=== PATIENT | female | born 1940 | race Caucasian/White ===

== ENCOUNTER → 2016-09-10 | Outpatient (CLI) | payer MEDICARE, OTHER ==
[~2016-09-10] MED LIST: CAR125T; DOCU100T15 OR; ENAL2.5T; IBUP50CH2; IOHEXOL 350 MG/ML 100ML IJ ONE; LEVO25TA49 PO; SIMV10TA84; TRIA50TA2 PO; WARF2TAB55
[2016-09-10 08:45] VITALS: BP 120/62
[2016-09-10 09:25] VITALS: BP 126/52
== END | disposition home or self-care (01) ==
LOC: Rad HDHVI 08:01
PROVIDERS: ATTEND Internal Medicine Cardiovascular Disease
DX: I65.23 Occlusion and stenosis of bilateral carotid arteries (principal); I70.8 Atherosclerosis of other arteries; G45.8 Other transient cerebral ischemic attacks and related syndromes; I34.2 Nonrheumatic mitral (valve) stenosis; I35.0 Nonrheumatic aortic (valve) stenosis; I07.1 Rheumatic tricuspid insufficiency
CPT/HCPCS: 70496; 70498; 93306; G0463; Q9967; 96374

== ENCOUNTER → 2016-09-30 | Outpatient (CLI) | payer MEDICARE, OTHER ==
[~2016-09-30] VITALS: Ht 157.5 cm; Wt 75.7 kg
[~2016-09-30] MED LIST changes: +ADENOSINE 64 MG in GIVE UN-DILUTED 0 ML IV ONE; +ADENOSINE 90 MG/30 ML INJ IV ONE; -IOHEXOL 350 MG/ML 100ML IJ ONE
== END | disposition home or self-care (01) ==
LOC: Rad HDHVI 09:32
PROVIDERS: ATTEND Internal Medicine Cardiovascular Disease
DX: R19.7 Diarrhea, unspecified (principal); R11.0 Nausea; I48.2 Chronic atrial fibrillation; I10 Essential (primary) hypertension; E78.00 Pure hypercholesterolemia, unspecified; Z95.0 Presence of cardiac pacemaker; Z98.61 Coronary angioplasty status
CPT/HCPCS: 78452; 93005; 96374; 96375; A9500; J0153

== ENCOUNTER → 2017-01-13 | Outpatient (CLI) | payer MEDICARE, OTHER ==
[~2017-01-13] MED LIST changes: -ADENOSINE 64 MG in GIVE UN-DILUTED 0 ML IV ONE; -ADENOSINE 90 MG/30 ML INJ IV ONE
== END | disposition home or self-care (01) ==
LOC: Rad HDHVI 09:07
PROVIDERS: ATTEND Internal Medicine Cardiovascular Disease
DX: M81.0 Age-related osteoporosis without current pathological fracture (principal); M85.9 Disorder of bone density and structure, unspecified; I10 Essential (primary) hypertension; E78.5 Hyperlipidemia, unspecified
CPT/HCPCS: 77078

== ENCOUNTER → 2017-01-31 | Outpatient (CLI) | payer MEDICARE | END | disposition home or self-care (01) | LOC: Rad HDHVI 10:27 | PROVIDERS: ATTEND Internal Medicine Cardiovascular Disease | DX: M47.896 Other spondylosis, lumbar region (principal); M16.0 Bilateral primary osteoarthritis of hip; I70.0 Atherosclerosis of aorta | CPT/HCPCS: 72110 ==

== ENCOUNTER 2017-05-26 00:49 | Emergency (ER) | payer MEDICARE ==
[~2017-05-26] VITALS: Ht 157.5 cm; Wt 77.6 kg
[2017-05-26 01:00] VITALS: BP 160/68
[2017-05-26 01:50] LABS: Urine RBC None Seen /hpf (0 - 4)
[2017-05-26 01:55] LABS: Basophils # (auto) 0.1 uL; Eosinophils # (auto) 0.5 uL; Eosinophils % (auto) 5.1 % (0.0-7.0); Hematocrit 43.7 % (36.0-46.0); Hemoglobin 14.8 g/dL (12.2-16.2); Lymphocytes % (auto) 21.4 % (10.0-50.0); Mean Corpuscular Hemoglobin 31.4 pg (28.0-32.0); Mean Corpuscular Hgb Conc. 33.9 g/dL (32.0-36.0); Mean Corpuscular Volume 92.4 fL (80.0-100.0); Mean Platelet Volume 7.7 fL (6.9-10.8); Monocytes # (auto) 0.7 uL; Monocytes % (auto) 7.9 % (0.0-12.0); Neutrophils % (auto) 64.6 % (37.0-80.0); Nucleated Red Blood Cells % 0.1 %; Platelet Count (auto) 252 10^3/uL (140-450); Red Cell Distribution Width 14.3 % (11.8-14.3); White Blood Cell 9.2 10^3/uL (4.4-10.8)
[2017-05-26 02:09] LABS: Urine Bilirubin Negative (Negative); Urine Blood Negative /uL (Negative); Urine Color Yellow (Yellow); Urine Glucose Normal (Normal); Urine Ketone Negative (Negative); Urine Nitrite Negative (Negative); Urine Urobilinogen Normal (Negative)
[2017-05-26 02:10] LABS: INR 2.35 (0.9-1.15); Partial Thromboplastin Time 42.1 sec (22.64-33.71); Prothrombin Time 25.8 sec (9.37-12.3)
[2017-05-26 02:22] LABS: Temperature: 23.1 C (20.0-25.0)
[2017-05-26 02:38] LABS: Alkaline Phosphatase 87 U/L (45-117); Anion Gap 11 (5-15); Aspartate Aminotransferase 22 U/L (15-37); BUN/Creatinine Ratio 23.4; Bilirubin, Total 0.4 mg/dL (0.2-1.0); Blood Urea Nitrogen 15 mg/dL (7-18); Calcium 9.1 mg/dL (8.5-10.1); Carbon Dioxide 27 mmol/L (21-32); Chloride 102 mmol/L (98-107); GFR African American 117 mL/min; GFR Non-African American 96 mL/min; Glucose 119 mg/dL (74-106); Magnesium 2.3 mg/dL (1.6-2.6); Potassium 4.2 mmol/L (3.5-5.1); Sodium 140 mmol/L (136-145)
== END 2017-05-26 05:31 | disposition left against medical advice (07) ==
LOC: ER 00:52
DX: R00.2 Palpitations (principal); R53.1 Weakness; Z53.21 Procedure and treatment not carried out due to patient leaving prior to being seen by health care provider
CPT/HCPCS: 36415; 71010; 80053; 81001; 83735; 83880; 84484; 85025; 85610; 85730; 93005

== ENCOUNTER → 2017-05-26 | Outpatient (CLI) | payer MEDICARE ==
[2017-05-26 08:33] LABS: Basophils # (auto) 0.1 uL; Basophils % (auto) 0.8 % (0.0-2.0); Eosinophils # (auto) 0.5 uL; Eosinophils % (auto) 4.6 % (0.0-7.0); Hematocrit 42.9 % (36.0-46.0); Hemoglobin 14.6 g/dL (12.2-16.2); Lymphocytes # (auto) 1.9 uL; Lymphocytes % (auto) 18.9 % (10.0-50.0); Mean Corpuscular Hemoglobin 31.7 pg (28.0-32.0); Mean Corpuscular Hgb Conc. 34.1 g/dL (32.0-36.0); Mean Platelet Volume 8.1 fL (6.9-10.8); Monocytes # (auto) 0.7 uL; Monocytes % (auto) 6.8 % (0.0-12.0); Neutrophils # (auto) 6.8 uL; Neutrophils % (auto) 68.9 % (37.0-80.0); Platelet Count (auto) 255 10^3/uL (140-450); Red Cell Distribution Width 13.9 % (11.8-14.3)
[2017-05-26 08:35] LABS: Urine Bilirubin Negative (Negative); Urine Blood Negative /uL (Negative); Urine Color Yellow (Yellow); Urine Glucose Normal (Normal); Urine Ketone Negative (Negative); Urine Mucus FEW (None Seen); Urine Nitrite Negative (Negative); Urine RBC 2 /hpf (0 - 4); Urine Squamous Epithelial Cell FEW /hpf (<5); Urine Urobilinogen Normal (Negative); Urine pH 5.5 (5.0-8.0)
[2017-05-26 08:50] LABS: Albumin 4.1 g/dL (3.4-5.0); Alkaline Phosphatase 76 U/L (45-117); Anion Gap 7 (5-15); Aspartate Aminotransferase 22 U/L (15-37); BUN/Creatinine Ratio 23.2; Bilirubin, Direct 0.2 mg/dL (0-0.2); Bilirubin, Total 0.6 mg/dL (0.2-1.0); Blood Urea Nitrogen 13 mg/dL (7-18); Calcium 9.5 mg/dL (8.5-10.1); Carbon Dioxide 27 mmol/L (21-32); Chloride 104 mmol/L (98-107); Cholesterol 284 mg/dL (< 200); GFR African American 136 mL/min; GFR Non-African American 112 mL/min; Glucose 104 mg/dL (74-106); HDL Cholesterol 30 mg/dL (40-59); Potassium 3.9 mmol/L (3.5-5.1); Sodium 138 mmol/L (136-145); Total Protein 7.8 g/dL (6.4-8.2); Triglycerides 425 mg/dL (< 150)
== END | disposition home or self-care (01) ==
LOC: LAB 06:35
PROVIDERS: ATTEND Internal Medicine Cardiovascular Disease
DX: I10 Essential (primary) hypertension (principal); E11.9 Type 2 diabetes mellitus without complications; D64.9 Anemia, unspecified; E55.9 Vitamin D deficiency, unspecified; E78.00 Pure hypercholesterolemia, unspecified; E03.9 Hypothyroidism, unspecified; K74.1 Hepatic sclerosis
CPT/HCPCS: 36415; 80048; 80061; 80076; 81001; 82306; 83036; 84443; 85025

== ENCOUNTER → 2017-06-24 | Outpatient (CLI) | payer MEDICARE | END | disposition home or self-care (01) | LOC: Rad HDHVI 09:05 | PROVIDERS: ATTEND Internal Medicine Cardiovascular Disease | DX: I47.1 Supraventricular tachycardia (principal) | CPT/HCPCS: 93306 ==

== ENCOUNTER → 2017-11-28 | Outpatient (CLI) | payer MEDICARE ==
[2017-11-28 12:18] LABS: Basophils # (auto) 0.1 uL; Basophils % (auto) 0.8 % (0.0-2.0); Eosinophils # (auto) 0.4 uL; Hemoglobin 14.4 g/dL (12.2-16.2); Lymphocytes # (auto) 1.4 uL; Mean Corpuscular Hemoglobin 31.7 pg (28.0-32.0); Mean Corpuscular Hgb Conc. 33.5 g/dL (32.0-36.0); Mean Corpuscular Volume 94.6 fL (80.0-100.0); Monocytes # (auto) 0.5 uL; Monocytes % (auto) 6.2 % (0.0-12.0); Neutrophils # (auto) 5.4 uL; Nucleated Red Blood Cells % 0.2 %; Platelet Count (auto) 280 10^3/uL (140-450); Red Blood Cells 4.55 10^6/uL (4.0-5.20); Red Cell Distribution Width 14.9 % (11.8-14.3); White Blood Cell 7.7 10^3/uL (4.4-10.8)
[2017-11-28 12:32] LABS: Urine Blood Negative /uL (Negative); Urine Specific Gravity 1.017 (1.001-1.035)
[2017-11-28 12:58] LABS: Free T4 (Free Thyroxine) 1.38 ng/dL (0.89-1.76)
[2017-11-28 13:15] LABS: Albumin 3.9 g/dL (3.4-5.0); Bilirubin, Total 0.5 mg/dL (0.2-1.0); Calcium 9.2 mg/dL (8.5-10.1); Potassium 4.2 mmol/L (3.5-5.1); Total Protein 7.6 g/dL (6.4-8.2)
== END | disposition home or self-care (01) ==
LOC: LAB 08:50
PROVIDERS: ATTEND Internal Medicine Cardiovascular Disease
DX: E78.5 Hyperlipidemia, unspecified (principal); D64.9 Anemia, unspecified; I10 Essential (primary) hypertension; E11.9 Type 2 diabetes mellitus without complications; E03.9 Hypothyroidism, unspecified; E55.9 Vitamin D deficiency, unspecified; D51.9 Vitamin B12 deficiency anemia, unspecified; N39.0 Urinary tract infection, site not specified
CPT/HCPCS: 36415; 80053; 80061; 81003; 82306; 82607; 83036; 84439; 84443; 85025

== ENCOUNTER → 2018-06-29 | Outpatient (CLI) | payer MEDICARE ==
[~2018-06-29] MED LIST changes: +LIDOCAINE 2%HCL (LOCAL ANESTH.) INJ 20ML MDV ONE; +SOTA80TA PO; -WARF2TAB55; +WARF2TAB55 PO; +[UNRECOGNIZED DRUG - CODE] PO
[2018-06-29 09:19] VITALS: BP 138/72
[2018-06-29 10:08] VITALS: BP 133/72
[2018-06-29 12:49] LABS: Partial Thromboplastin Time 29.8 sec (23.78-33.04); Prothrombin Time 10.7 sec (9.27-12.13)
[2018-06-29 12:50] LABS: Basophils # (auto) 0.1 uL; Basophils % (auto) 0.6 % (0.0-2.0); Eosinophils # (auto) 0.3 uL; Eosinophils % (auto) 3.9 % (0.0-7.0); Lymphocytes # (auto) 1.4 uL; Mean Corpuscular Hemoglobin 31.8 pg (28.0-32.0); Mean Corpuscular Hgb Conc. 34.2 g/dL (32.0-36.0); Monocytes # (auto) 0.9 uL; Monocytes % (auto) 10.4 % (0.0-12.0); Neutrophils # (auto) 5.7 uL; Neutrophils % (auto) 68.1 % (37.0-80.0); Nucleated Red Blood Cells % 0.3 %; Platelet Count (auto) 251 10^3/uL (140-450); Red Blood Cells 4.73 10^6/uL (4.0-5.20); Red Cell Distribution Width 14.3 % (11.8-14.3); White Blood Cell 8.4 10^3/uL (4.4-10.8)
[2018-06-29 13:13] LABS: Potassium 3.9 mmol/L (3.5-5.1)
[2018-06-29 13:20] LABS: BUN/Creatinine Ratio 21.1; Calcium 9.1 mg/dL (8.5-10.1)
== END | disposition home or self-care (01) ==
LOC: Rad HDHVI 09:03
PROVIDERS: ATTEND Internal Medicine Cardiovascular Disease
DX: Z01.818 Encounter for other preprocedural examination (principal); I70.0 Atherosclerosis of aorta; D64.9 Anemia, unspecified; I48.0 Paroxysmal atrial fibrillation; R79.1 Abnormal coagulation profile; I10 Essential (primary) hypertension; R94.31 Abnormal electrocardiogram [ECG] [EKG]
CPT/HCPCS: 36415; 71046; 80048; 85025; 85610; 85730; 93005; G0463

== ENCOUNTER 2018-06-30 07:44 | Day surgery (SDC) | payer MEDICARE ==
[~2018-06-30] VITALS: Ht 157.5 cm; Wt 76.2 kg
[~2018-06-30 07:44] MED LIST changes: -CAR125T; -ENAL2.5T; -IBUP50CH2; -LIDOCAINE 2%HCL (LOCAL ANESTH.) INJ 20ML MDV ONE; -SIMV10TA84
[2018-06-30] MEDS ORDERED: VANCOMYCIN 1GM/250ML 250 ML IV ONE ×2 (08:44→08:45)
[2018-06-30] MEDS ORDERED: VANCOMYCIN HCL 1000 MG VL ONE (10:47)
[2018-06-30] MEDS ORDERED: MIDAZOLAM HCL 1MG/1ML-2 ML VIAL ONE (10:48)
[2018-06-30] MEDS ORDERED: fentaNYL CITRATE 100 MCG/2 ML VL ONE (10:48)
== END 2018-06-30 13:05 | disposition home or self-care (01) ==
LOC: CATH 07:44
PROVIDERS: ATTEND Internal Medicine Cardiovascular Disease
DX: Z45.018 Encounter for adjustment and management of other part of cardiac pacemaker (principal); I48.91 Unspecified atrial fibrillation; I49.5 Sick sinus syndrome; F41.9 Anxiety disorder, unspecified; F32.9 Major depressive disorder, single episode, unspecified; I10 Essential (primary) hypertension; E78.5 Hyperlipidemia, unspecified; E03.9 Hypothyroidism, unspecified; M81.0 Age-related osteoporosis without current pathological fracture; Z88.8 Allergy status to other drugs, medicaments and biological substances; Z88.2 Allergy status to sulfonamides; Z95.1 Presence of aortocoronary bypass graft; Z82.49 Family history of ischemic heart disease and other diseases of the circulatory system; Z87.891 Personal history of nicotine dependence; Z79.899 Other long term (current) drug therapy
CPT/HCPCS: 33228; 99152; 99153; A6257; C1785; J2250; J3010; J3370

== ENCOUNTER 2018-07-16 23:05 | Emergency (ER) | payer MEDICARE ==
[~2018-07-16] VITALS: Ht 157.5 cm; Wt 75.7 kg
[2018-07-16 23:36] LABS: Basophils # (auto) 0.1 uL; Basophils % (auto) 0.9 % (0.0-2.0); Eosinophils # (auto) 0.4 uL; Eosinophils % (auto) 5.5 % (0.0-7.0); Hematocrit 45.2 % (36.0-46.0); Lymphocytes # (auto) 2.2 uL; Lymphocytes % (auto) 27.9 % (10.0-50.0); Mean Corpuscular Hemoglobin 30.9 pg (28.0-32.0); Mean Corpuscular Hgb Conc. 33.2 g/dL (32.0-36.0); Mean Corpuscular Volume 93.1 fL (80.0-100.0); Monocytes # (auto) 0.8 uL; Monocytes % (auto) 10.5 % (0.0-12.0); Neutrophils # (auto) 4.3 uL; Neutrophils % (auto) 55.2 % (37.0-80.0); Nucleated Red Blood Cells % 0.1 %; Platelet Count (auto) 286 10^3/uL (140-450); Red Blood Cells 4.85 10^6/uL (4.0-5.20); Red Cell Distribution Width 14.5 % (11.8-14.3); White Blood Cell 7.7 10^3/uL (4.4-10.8)
[2018-07-16 23:53] LABS: Urine Bacteria FEW /hpf (None Seen); Urine Blood Negative /uL (Negative); Urine Specific Gravity 1.008 (1.001-1.035); Urine WBC 2 /hpf (0 - 5)
[2018-07-16 23:54] LABS: Alanine Aminotransferase 21 U/L (13-56); Albumin 3.9 g/dL (3.4-5.0); Anion Gap 6 (5-15); Aspartate Aminotransferase 23 U/L (15-37); BUN/Creatinine Ratio 18.1; Blood Urea Nitrogen 17 mg/dL (7-18); Carbon Dioxide 27 mmol/L (21-32); Chloride 103 mmol/L (98-107); GFR African American 75 mL/min; GFR Non-African American 62 mL/min; Glucose 106 mg/dL (74-106); Magnesium 2.2 mg/dL (1.6-2.6); Potassium 3.7 mmol/L (3.5-5.1); Sodium 136 mmol/L (136-145)
[2018-07-16 23:59] LABS: Alkaline Phosphatase 80 U/L (45-117); Bilirubin, Total 0.4 mg/dL (0.2-1.0); Total Protein 7.6 g/dL (6.4-8.2)
[2018-07-17 04:30] VITALS: BP 121/75
== END 2018-07-17 05:05 | disposition home or self-care (01) ==
LOC: ER 23:24
DX: T82.199A Other mechanical complication of unspecified cardiac device, initial encounter (principal); I48.91 Unspecified atrial fibrillation; I11.0 Hypertensive heart disease with heart failure; I50.9 Heart failure, unspecified; E07.9 Disorder of thyroid, unspecified; I25.810 Atherosclerosis of coronary artery bypass graft(s) without angina pectoris; F17.210 Nicotine dependence, cigarettes, uncomplicated; Z88.2 Allergy status to sulfonamides
CPT/HCPCS: 36415; 71045; 80053; 81001; 83735; 83880; 84443; 84484; 85025; 85379; 93005

== ENCOUNTER → 2018-07-17 | Outpatient (CLI) | payer MEDICARE ==
[~2018-07-17] VITALS: Ht 30.5 cm; Wt 0.5 kg
[~2018-07-17] MED LIST changes: +CYANOCOBALAMIN (B-12) 1000 MCG/1 ML VIAL IM ONE; +CYANOCOBALAMIN (B-12) 1000 MCG/1 ML VIAL ONE; +KETOROLAC TROMETH 60MG/2ML VIAL IM ONE; +POTASSIUM CHL 10 Meq TABLET PO ONE; +POTASSIUM CHL 20 Meq TABLET PO ONE
[2018-07-17 07:53] VITALS: BP 120/54
[2018-07-17 09:12] VITALS: BP 179/78
== END | disposition home or self-care (01) ==
LOC: CHF HDHVI 08:20
PROVIDERS: ATTEND Internal Medicine Cardiovascular Disease
DX: I48.0 Paroxysmal atrial fibrillation (principal); R53.83 Other fatigue; I11.0 Hypertensive heart disease with heart failure; I50.9 Heart failure, unspecified; I25.10 Atherosclerotic heart disease of native coronary artery without angina pectoris; F32.9 Major depressive disorder, single episode, unspecified; I70.0 Atherosclerosis of aorta; F41.9 Anxiety disorder, unspecified; E78.5 Hyperlipidemia, unspecified; E03.9 Hypothyroidism, unspecified; M81.0 Age-related osteoporosis without current pathological fracture; E11.9 Type 2 diabetes mellitus without complications; E78.00 Pure hypercholesterolemia, unspecified; Z79.01 Long term (current) use of anticoagulants; Z86.73 Personal history of transient ischemic attack (TIA), and cerebral infarction without residual deficits; Z79.899 Other long term (current) drug therapy; Z87.891 Personal history of nicotine dependence; Z95.1 Presence of aortocoronary bypass graft; Z45.018 Encounter for adjustment and management of other part of cardiac pacemaker
CPT/HCPCS: 96372; G0463; J1885; J3420

== ENCOUNTER → 2018-08-25 | Outpatient (CLI) | payer MEDICARE ==
[~2018-08-25] MED LIST changes: -CYANOCOBALAMIN (B-12) 1000 MCG/1 ML VIAL IM ONE; -CYANOCOBALAMIN (B-12) 1000 MCG/1 ML VIAL ONE; +KETOROLAC TROMETH 30 MG/ML 1ML VIAL IV ONE; +MVI in SODIUM CHLORIDE 0.9% 1,000 ML IVB ONE; +MVI in SODIUM CHLORIDE 0.9% 1,010 ML ONE; +ONDANSETRON HCL 4 MG/2 ML VIAL IV ONE; +ONDANSETRON HCL 4 MG/2 ML VIAL ONE; -POTASSIUM CHL 10 Meq TABLET PO ONE; -POTASSIUM CHL 20 Meq TABLET PO ONE
--- NOTE | 2018-08-25 09:00 | NUR ---
IV insertion IV access obtained, via clean sterile technique by inserting 22 gauge catheter at [RIGHT AC) after [1] attempt(s). IV secured properly. No trauma to site. Patient tolerated procedure well.
--- NOTE | 2018-08-25 09:20 | NUR ---
Clinic Provider Clinic Provider into see pt with new orders received and carried out. MEDICATE FOR PAIN RATED 8/10 TO ALL OVER BODY ACHES. START IVFLUIDS
--- NOTE | 2018-08-25 09:20 | NUR ---
CHF TORADOL 30MG IVP, 10ML NS FLUSH, MVI BAG STARTED AT 330ML/HR . PT TOLERATED WELL.
--- NOTE | 2018-08-25 09:40 | NUR ---
RATES PAIN 5/10 CURRENTLY. REPORTS GOOD RELIEF OF ACHES.
--- NOTE | 2018-08-25 09:56 | NUR ---
CHF TORADOL 30MG IM L GLUTE ADMINISTERED . PT TOLERATED WELL. PT C/O NAUSEA SINCE SHE ARRIVED, HAS HAD IT OFF AND ON FOR THE LAST 2 WEEKS AND NOW ITS BACK AGAIN.
--- NOTE | 2018-08-25 10:01 | NUR ---
CHF DR. SANGEETHA HOPE ZOFRAN 4MG IVP FOR NAUSEA.
--- NOTE | 2018-08-25 10:46 | NUR ---
CHF PT STATES NAUSEA RESOLVED. PT HAD HER PACEMAKER INTERROGATED ALSO TODAY.
--- NOTE | 2018-08-25 11:30 | NUR ---
CHF PT STATES "PAIN NOW A 3/10, NAUSEA GONE, STILL HAS COLD FLU SYMPTOMS BUT STATES FEELING BETTER THAN WHEN SHE GOT HERE"
[2018-08-25 12:14] LABS: Basophils # (auto) 0.1 uL; Hemoglobin 7.7 g/dL (12.2-16.2); Lymphocytes # (auto) 1.1 uL; Lymphocytes % (auto) 8.8 % (10.0-50.0); Monocytes # (auto) 0.7 uL; Neutrophils # (auto) 10.9 uL; Nucleated Red Blood Cells % 0.1 %
[2018-08-25 12:17] LABS: Basophils % (auto) 0.5 % (0.0-2.0); Eosinophils # (auto) 0.2 uL; Eosinophils % (auto) 1.6 % (0.0-7.0); Hematocrit 23.1 % (36.0-46.0); Mean Corpuscular Hemoglobin 31.7 pg (28.0-32.0); Mean Corpuscular Hgb Conc. 33.5 g/dL (32.0-36.0); Mean Corpuscular Volume 94.7 fL (80.0-100.0); Monocytes % (auto) 5.1 % (0.0-12.0); Platelet Count (auto) 402 10^3/uL (140-450); Red Blood Cells 2.44 10^6/uL (4.0-5.20); Red Cell Distribution Width 16.3 % (11.8-14.3)
[2018-08-25 12:34] VITALS: BP 126/54
--- NOTE | 2018-08-25 12:34 | NUR ---
CHF MVI BAG COMPLETE AT 1230. IV removal IV DC'd with sterile technique, catheter fully intact. Pressure dressing applied to site. Patient tolerated procedure well. Discharged with aftercare instructions per MD. INSTRUCTED PT TO GO HOME AND REST AND FOLLOW UP WITH DR. VIVAS SCHEDULED. NOTE:
[2018-08-25 12:46] LABS: BUN/Creatinine Ratio 16.5; Calcium 8.5 mg/dL (8.5-10.1)
[2018-08-27 14:13] LABS: Potassium 2.8 mmol/L (3.5-5.1)
== END | disposition home or self-care (01) ==
LOC: CHF HDHVI 08:48
PROVIDERS: ATTEND Internal Medicine Cardiovascular Disease
DX: D64.9 Anemia, unspecified (principal); I11.0 Hypertensive heart disease with heart failure; I50.9 Heart failure, unspecified; I48.2 Chronic atrial fibrillation; I25.10 Atherosclerotic heart disease of native coronary artery without angina pectoris; M16.0 Bilateral primary osteoarthritis of hip; E78.5 Hyperlipidemia, unspecified; E11.9 Type 2 diabetes mellitus without complications; F41.9 Anxiety disorder, unspecified; E78.00 Pure hypercholesterolemia, unspecified; E03.9 Hypothyroidism, unspecified; F32.9 Major depressive disorder, single episode, unspecified; M81.0 Age-related osteoporosis without current pathological fracture; Z98.61 Coronary angioplasty status; Z87.891 Personal history of nicotine dependence; Z95.1 Presence of aortocoronary bypass graft; Z79.891 Long term (current) use of opiate analgesic; Z79.01 Long term (current) use of anticoagulants; Z95.0 Presence of cardiac pacemaker; Z86.73 Personal history of transient ischemic attack (TIA), and cerebral infarction without residual deficits
CPT/HCPCS: 36415; 80048; 85025; 85610; 96365; 96366; 96372; 96375; G0463; J1885; J2405; J3411; J3475

== ENCOUNTER → 2018-08-26 | Outpatient (CLI) | payer MEDICARE ==
[~2018-08-26] MED LIST changes: -KETOROLAC TROMETH 30 MG/ML 1ML VIAL IV ONE; -KETOROLAC TROMETH 60MG/2ML VIAL IM ONE; -MVI in SODIUM CHLORIDE 0.9% 1,000 ML IVB ONE; -MVI in SODIUM CHLORIDE 0.9% 1,010 ML ONE; -ONDANSETRON HCL 4 MG/2 ML VIAL IV ONE; -ONDANSETRON HCL 4 MG/2 ML VIAL ONE; +POTASSIUM CHL 10 Meq TABLET PO ONE; +POTASSIUM CHL 20 Meq TABLET PO ONE
[2018-08-26 08:00] VITALS: BP 141/51
--- NOTE | 2018-08-26 08:00 | NUR ---
IN TO CLINIC FOR FOLLOWUP FOR HYPOKALEMIA AND FLU LIKE SYMPTOMS AND REPEAT LABS TODAY. LABS DRAWN AND SENT STAT. PT COMPLAINS OF CONSTIPATION TODAY. REPORTED LONGSTANDING DIARRHEA YESTERDAY. PT REPORTS SHE DID A SELF RECTAL CHECK AND THAT SHE HAS "SOFT STOOL THAT IS STUCK"
--- NOTE | 2018-08-26 08:40 | NUR ---
PT VISITING WITH OTHER PATIENTS. AFFECT CHEERFUL . WITHOUT COMPLAINT LONG SHE IS VISITING.
[2018-08-26 08:53] LABS: Basophils # (auto) 0.1 uL; Hemoglobin 7.4 g/dL (12.2-16.2)
[2018-08-26 08:54] LABS: Basophils % (auto) 0.4 % (0.0-2.0); Eosinophils # (auto) 0.3 uL; Hematocrit 22.3 % (36.0-46.0); Lymphocytes # (auto) 1.4 uL; Lymphocytes % (auto) 9.3 % (10.0-50.0); Mean Corpuscular Hemoglobin 31.9 pg (28.0-32.0); Mean Corpuscular Hgb Conc. 33.4 g/dL (32.0-36.0); Mean Corpuscular Volume 95.4 fL (80.0-100.0); Monocytes # (auto) 0.9 uL; Monocytes % (auto) 6.3 % (0.0-12.0); Nucleated Red Blood Cells % 0.1 %; Platelet Count (auto) 392 10^3/uL (140-450); Red Blood Cells 2.34 10^6/uL (4.0-5.20); Red Cell Distribution Width 16.3 % (11.8-14.3); White Blood Cell 14.6 10^3/uL (4.4-10.8)
[2018-08-26 08:56] LABS: Magnesium 2.2 mg/dL (1.6-2.6)
[2018-08-26 09:12] LABS: Potassium 2.8 mmol/L (3.5-5.1)
--- NOTE | 2018-08-26 09:30 | NUR ---
LABS RETURNED. NEW ORDERS RECIEVED. PT TO GO TO [facility] FOR TYPE AND SCREEN FOR BLOOD TRANSFUSION OF 2 UNITS PRBCS TO BE ADMINISTERED TOMORROW. TO FOLLOW UP AGAIN ON FRIDAY FOR ADDITIONAL LABS HERE FOR FOLLOWUP HGB POST TRANSFUSION AND FOR FOLLOWUP POTASSIUM LEVEL. REPEAT BACK INSTRUCTIONS OBTAINED FROM PATIENT. PT DISCHARGED TO CARE OF SON TO GO TO HOSPITAL FOR LABS NOW. Discharge Instructions See e-MAR for any mediations given with this visit. Patient education given on disease process. Patient verbalized understanding. Previous labs reviewed. Patient discharged in stable condition with after care instructions and follow up appointment FOR 08/28/18.
[2018-08-26 09:46] VITALS: BP 141/57
--- NOTE | 2018-08-26 11:28 | NUR ---
RETURNED TO CLINIC FOR ADDITIONAL POTASSIUM. MEDICATION ADMINISTRATION POTASSIUM 40 MEQ PO AT 0808 POTASSIUM 40 MEQ PO AT 1128 T/C TODAY FOR TRANSFUSION OF 2 UNITS PRBCS ON 08/27/18 AT [facility]
== END | disposition home or self-care (01) ==
LOC: CHF HDHVI 08:02
PROVIDERS: ATTEND Internal Medicine Cardiovascular Disease
DX: E87.6 Hypokalemia (principal); E83.40 Disorders of magnesium metabolism, unspecified; D64.9 Anemia, unspecified
CPT/HCPCS: 36415; 82962; 83735; 84132; 85025; 85610; G0463

== ENCOUNTER 2018-08-27 07:19 | Day surgery (SDC) | payer MEDICARE ==
--- NOTE | 2018-08-26 18:50 | NUR ---
Potassium level shown as 2.8 from [address] Castanon, who ordered to call pt and have her take 80 mEq of potassium. When I called pt, she said she received potassium 40meq this morning, and another 40meq at noon at the [facility]. Relayed this to Dr. Castanon; no new orders. No repeat potassium level located in pt chart. Will redraw when pt comes in the morning for scheduled transfusion.
[~2018-08-27 07:19] MED LIST changes: -POTASSIUM CHL 10 Meq TABLET PO ONE; -POTASSIUM CHL 20 Meq TABLET PO ONE
[2018-08-27 08:55] VITALS: BP 119/53
[2018-08-27 09:10] VITALS: BP 125/55
[2018-08-27 09:25] VITALS: BP 124/53
[2018-08-27 09:39] VITALS: BP 125/57
[2018-08-27 10:41] VITALS: BP 124/47
[2018-08-27 11:53] VITALS: BP 119/59
--- NOTE | 2018-08-27 12:00 | NUR ---
Pt tolerated blood transfusion well. No reaction noted. Verbal and written d/c instructions provided, pt verbalized understanding. PIV removed intact. Pt brought to private auto via w/c, escorted by son Blas. Steady on feet.
== END 2018-08-27 12:00 | disposition home or self-care (01) ==
LOC: CATH 07:19
PROVIDERS: ATTEND Internal Medicine Cardiovascular Disease
DX: D64.9 Anemia, unspecified (principal); F41.9 Anxiety disorder, unspecified; F32.9 Major depressive disorder, single episode, unspecified; F17.210 Nicotine dependence, cigarettes, uncomplicated; Z88.2 Allergy status to sulfonamides; Z88.8 Allergy status to other drugs, medicaments and biological substances; Z95.1 Presence of aortocoronary bypass graft; Z84.89 Family history of other specified conditions; Z82.49 Family history of ischemic heart disease and other diseases of the circulatory system
CPT/HCPCS: 36415; 36430; 84132; 86850; 86900; 86901; 86920; J7040; P9016

== ENCOUNTER → 2018-08-28 | Outpatient (CLI) | payer MEDICARE ==
[~2018-08-28] VITALS: Ht 30.5 cm; Wt 0.5 kg
[~2018-08-28] MED LIST changes: +CYANOCOBALAMIN (B-12) 1000 MCG/1 ML VIAL IM ONE; +CYANOCOBALAMIN (B-12) 1000 MCG/1 ML VIAL ONE; +POTASSIUM CHL 10 Meq TABLET PO ONE; +POTASSIUM CHL 20 Meq TABLET PO ONE
[2018-08-28 08:00] VITALS: BP 145/45
--- NOTE | 2018-08-28 08:00 | NUR ---
PT. TO CLINIC FOR EVAL. AND TX WITH STAT LABS ORDERD BY DR. VIVAS. PT. CONTINUES TO C/O GENERAL MALAISE, NAUSEA BUT NO VOMITING. PT STAES SHE GETS RELIEF FROM OTC MAALOX TYPE OF MEDICATION, AND STATES SHE BELIEVES IT COULD HAVE LEAD TO HER DARK STOOLS. PT. IS STATUS POST ONE UNIT PRBC YESTERDAY. AOX3, PWD. VSS.
--- NOTE | 2018-08-28 08:07 | NUR ---
STAT LABS DRAWN AND SENT.
[2018-08-28 08:31] LABS: Basophils # (auto) 0 uL; Basophils % (auto) 0.3 % (0.0-2.0); Eosinophils # (auto) 0.3 uL; Eosinophils % (auto) 1.8 % (0.0-7.0); Hematocrit 27.5 % (36.0-46.0); Hemoglobin 9.1 g/dL (12.2-16.2); Lymphocytes # (auto) 1.1 uL; Lymphocytes % (auto) 7.1 % (10.0-50.0); Mean Corpuscular Hemoglobin 31.3 pg (28.0-32.0); Mean Corpuscular Hgb Conc. 32.9 g/dL (32.0-36.0); Mean Corpuscular Volume 95.1 fL (80.0-100.0); Monocytes # (auto) 0.9 uL; Neutrophils # (auto) 13.3 uL; Neutrophils % (auto) 84.8 % (37.0-80.0); Nucleated Red Blood Cells % 0.1 %; Platelet Count (auto) 389 10^3/uL (140-450); Red Cell Distribution Width 15.4 % (11.8-14.3); White Blood Cell 15.7 10^3/uL (4.4-10.8)
--- NOTE | 2018-08-28 09:00 | NUR ---
PT. IS ANXIOUS TO LEAVE. REASSURANCE GIVEN TO PT. THAT SHE NEEDS TO WAIT ON LAB RESULTS, WITH RECENT ABNORMAL LAB S REVIEWED WITH PT.FOR RATIONALE.
--- NOTE | 2018-08-28 09:30 | NUR ---
LABS: LAB RESULTS TO DR. VIVAS WITH NEW ORDERS RECEIVED AND CARRIED , WITH MED REC REVIEWED WITH MD AND PT. INR DONE WITH RESULTS OF 2.7 TO MD. PT. MEDICATED WITH VIT. B12 1000MCG IM LFT DELT. PER MD ORDER.
--- NOTE | 2018-08-28 09:35 | NUR ---
MEDS: PT. MEDICATED WITH KDUR 40 MEQ PER MD ORDER.
--- NOTE | 2018-08-28 10:30 | NUR ---
MEDS: REPEAT K-DUR 40 MEQ PO GIVEN TO PT. PER MD ORDER.
[2018-08-28 10:35] VITALS: BP 140/49
--- NOTE | 2018-08-28 10:35 | NUR ---
Discharge Instructions See e-MAR for any mediations given with this visit. Patient education given on disease process. Patient verbalized understanding. Previous labs reviewed. Patient discharged in stable condition with after care instructions and follow up appointment. PT. GIVEN SPECIFIC INSTRUCTIONS TO HOLD BABY ASPIRIN, NAPROSYN, AND COUMADIN UNTIL SEEN BY DR. VIVAS NEXT FRIDAY AT 10:20. PT. HAS AN APPT. WITH [facility] NEXT AT 2:[address] MARTINEZ FOR UPPER GI CONSULT. RX FOR LEVAQUIN 500MG PO DAILY X7 DAYS CALLED TO [facility]. PER DR. VIVAS. PT. INSTRUCTED TO EAT YOGURT DAILY. PT. WITH FULL UNDERSTANDING OF MED REC CHANGES AND INSTRUCTIONS TO BRING ALL MEDS TO [facility] APPT.
== END | disposition home or self-care (01) ==
LOC: LAB 07:48
PROVIDERS: ATTEND Internal Medicine Cardiovascular Disease
DX: D51.9 Vitamin B12 deficiency anemia, unspecified (principal); E87.6 Hypokalemia; I11.0 Hypertensive heart disease with heart failure; I50.9 Heart failure, unspecified; I25.10 Atherosclerotic heart disease of native coronary artery without angina pectoris; I70.0 Atherosclerosis of aorta; I48.2 Chronic atrial fibrillation; E11.9 Type 2 diabetes mellitus without complications; E78.5 Hyperlipidemia, unspecified; E03.9 Hypothyroidism, unspecified; E78.00 Pure hypercholesterolemia, unspecified; M81.0 Age-related osteoporosis without current pathological fracture; M16.0 Bilateral primary osteoarthritis of hip; F41.9 Anxiety disorder, unspecified; F32.9 Major depressive disorder, single episode, unspecified; Z98.61 Coronary angioplasty status; Z95.0 Presence of cardiac pacemaker; Z95.1 Presence of aortocoronary bypass graft; Z79.01 Long term (current) use of anticoagulants; Z86.73 Personal history of transient ischemic attack (TIA), and cerebral infarction without residual deficits; Z79.899 Other long term (current) drug therapy; Z79.891 Long term (current) use of opiate analgesic; Z87.891 Personal history of nicotine dependence
CPT/HCPCS: 36415; 84132; 85025; 85610; 96372; G0463; J3420

== ENCOUNTER → 2018-09-11 | Outpatient (CLI) | payer MEDICARE ==
[~2018-09-11] MED LIST changes: -CYANOCOBALAMIN (B-12) 1000 MCG/1 ML VIAL IM ONE; -CYANOCOBALAMIN (B-12) 1000 MCG/1 ML VIAL ONE; -POTASSIUM CHL 10 Meq TABLET PO ONE; -POTASSIUM CHL 20 Meq TABLET PO ONE
[2018-09-11 12:05] LABS: Basophils # (auto) 0 uL; Basophils % (auto) 0.4 % (0.0-2.0); Eosinophils # (auto) 0.3 uL; Eosinophils % (auto) 3.9 % (0.0-7.0); Hematocrit 33.2 % (36.0-46.0); Hemoglobin 10.5 g/dL (12.2-16.2); Lymphocytes % (auto) 14.2 % (10.0-50.0); Mean Corpuscular Hemoglobin 28.1 pg (28.0-32.0); Mean Corpuscular Hgb Conc. 31.5 g/dL (32.0-36.0); Mean Corpuscular Volume 89.1 fL (80.0-100.0); Monocytes # (auto) 0.7 uL; Monocytes % (auto) 10.4 % (0.0-12.0); Neutrophils % (auto) 71.1 % (37.0-80.0); Nucleated Red Blood Cells % 0.1 %; Platelet Count (auto) 314 10^3/uL (140-450); Red Blood Cells 3.72 10^6/uL (4.0-5.20); Red Cell Distribution Width 17.7 % (11.8-14.3)
== END | disposition home or self-care (01) ==
LOC: CHF HDHVI 08:21
PROVIDERS: ATTEND Internal Medicine Cardiovascular Disease
DX: D64.9 Anemia, unspecified (principal); R79.1 Abnormal coagulation profile
CPT/HCPCS: 36415; 85025; 85610

== ENCOUNTER → 2019-01-29 | Outpatient (CLI) | payer MEDICARE ==
[2019-01-29 07:51] LABS: Urine Amorphous Crystal FEW /hpf (None Seen); Urine Bacteria FEW /hpf (None Seen); Urine Blood Negative /uL (Negative); Urine WBC 5 /hpf (0 - 5)
[2019-01-29 08:08] LABS: Basophils # (auto) 0 uL; Basophils % (auto) 0.5 % (0.0-2.0); Eosinophils # (auto) 0.2 uL; Eosinophils % (auto) 2.2 % (0.0-7.0); Hematocrit 45.3 % (36.0-46.0); Hemoglobin 15.3 g/dL (12.2-16.2); Lymphocytes # (auto) 1.4 uL; Mean Corpuscular Hemoglobin 30.3 pg (28.0-32.0); Mean Corpuscular Hgb Conc. 33.8 g/dL (32.0-36.0); Mean Corpuscular Volume 89.8 fL (80.0-100.0); Monocytes # (auto) 0.7 uL; Monocytes % (auto) 7.4 % (0.0-12.0); Neutrophils # (auto) 7.4 uL; Neutrophils % (auto) 75.9 % (37.0-80.0); Platelet Count (auto) 283 10^3/uL (140-450); Red Blood Cells 5.05 10^6/uL (4.0-5.20); Red Cell Distribution Width 18.6 % (11.8-14.3); White Blood Cell 9.8 10^3/uL (4.4-10.8)
[2019-01-29 08:17] LABS: Calcium 9.6 mg/dL (8.5-10.1); Potassium 3.6 mmol/L (3.5-5.1)
[2019-01-29 08:23] LABS: Albumin 3.7 g/dL (3.4-5.0); BUN/Creatinine Ratio 21.1; Bilirubin, Total 0.5 mg/dL (0.2-1.0); Total Protein 7.9 g/dL (6.4-8.2)
[2019-01-29 12:55] LABS: Free T4 (Free Thyroxine) 1.03 ng/dL (0.89-1.76)
== END | disposition home or self-care (01) ==
LOC: LAB 07:15
PROVIDERS: ATTEND Internal Medicine Cardiovascular Disease
DX: E78.5 Hyperlipidemia, unspecified (principal); K74.1 Hepatic sclerosis; E03.9 Hypothyroidism, unspecified; E55.9 Vitamin D deficiency, unspecified; E11.9 Type 2 diabetes mellitus without complications; N39.0 Urinary tract infection, site not specified; D51.9 Vitamin B12 deficiency anemia, unspecified; I11.0 Hypertensive heart disease with heart failure; I50.9 Heart failure, unspecified
CPT/HCPCS: 36415; 80053; 80061; 81001; 82306; 82607; 83036; 84439; 84443; 85025

== ENCOUNTER → 2019-02-09 | Outpatient (CLI) | payer MEDICARE | END | disposition home or self-care (01) | LOC: Rad HDHVI 08:03 | PROVIDERS: ATTEND Internal Medicine Cardiovascular Disease | DX: I70.202 Unspecified atherosclerosis of native arteries of extremities, left leg (principal) | CPT/HCPCS: 93926 ==

== ENCOUNTER → 2019-04-05 | Outpatient (CLI) | payer MEDICARE ==
[~2019-04-05] VITALS: Ht 157.5 cm; Wt 64.9 kg
[~2019-04-05] MED LIST changes: +ADENOSINE 54 MG in GIVE UN-DILUTED 0 ML IV ONE; +ADENOSINE 90 MG/30 ML INJ IV ONE; +FAMO-12 PO; +HYDR25TA4 PO; +METO-169 PO; +VERA120T3 PO; +WARF2TAB PO; -WARF2TAB55 PO
[2019-04-05 12:34] LABS: BUN/Creatinine Ratio 39.8; Calcium 9.4 mg/dL (8.5-10.1); Magnesium 2.3 mg/dL (1.6-2.6); Potassium 3.2 mmol/L (3.5-5.1)
== END | disposition home or self-care (01) ==
LOC: Rad HDHVI 08:00
PROVIDERS: ATTEND Internal Medicine Cardiovascular Disease
DX: E78.00 Pure hypercholesterolemia, unspecified (principal); E87.6 Hypokalemia; I11.0 Hypertensive heart disease with heart failure; I50.9 Heart failure, unspecified; Z87.891 Personal history of nicotine dependence
CPT/HCPCS: 36415; 78452; 80048; 83735; 93005; 96374; 96375; A9500; J0153

== ENCOUNTER → 2019-04-13 | Outpatient (CLI) | payer MEDICARE ==
[~2019-04-13] MED LIST changes: -ADENOSINE 54 MG in GIVE UN-DILUTED 0 ML IV ONE; -ADENOSINE 90 MG/30 ML INJ IV ONE
[2019-04-13 11:50] VITALS: BP 159/78
--- NOTE | 2019-04-13 12:25 | NUR ---
Pre-Op Discharge Summary: See e-MAR for any medications given for this visit. Pre-op orders received and carried out per of EKG, LABS and chest xrays. Patient given a copy of EKG with instructions to go to [facility] out patient for further follow up care. Addendum: 04/13/19 at 1514 by MARISOL WILKINS RN MO CHEST XRAY TO BE DONE AT [facility]
[2019-04-13 15:11] VITALS: BP 145/70
[2019-04-13 16:02] LABS: Basophils # (auto) 0 uL; Basophils % (auto) 0.4 % (0.0-2.0); Eosinophils # (auto) 0.2 uL; Eosinophils % (auto) 2.2 % (0.0-7.0); Hematocrit 44.1 % (36.0-46.0); Hemoglobin 14.8 g/dL (12.2-16.2); Lymphocytes # (auto) 1.8 uL; Lymphocytes % (auto) 18.8 % (10.0-50.0); Mean Corpuscular Hemoglobin 31.7 pg (28.0-32.0); Mean Corpuscular Hgb Conc. 33.5 g/dL (32.0-36.0); Mean Corpuscular Volume 94.6 fL (80.0-100.0); Monocytes # (auto) 0.8 uL; Monocytes % (auto) 7.7 % (0.0-12.0); Neutrophils # (auto) 6.9 uL; Neutrophils % (auto) 70.9 % (37.0-80.0); Platelet Count (auto) 234 10^3/uL (140-450); Red Blood Cells 4.66 10^6/uL (4.0-5.20); Red Cell Distribution Width 15.2 % (11.8-14.3); White Blood Cell 9.8 10^3/uL (4.4-10.8)
[2019-04-13 16:12] LABS: Potassium 3.6 mmol/L (3.5-5.1)
[2019-04-13 16:14] LABS: INR 2.03 (0.9-1.15); Partial Thromboplastin Time 41.7 sec (23.64-32.05)
[2019-04-13 16:30] LABS: BUN/Creatinine Ratio 37.2; Calcium 9.4 mg/dL (8.5-10.1)
== END | disposition home or self-care (01) ==
LOC: Rad HDHVI 11:02
PROVIDERS: ATTEND Internal Medicine Cardiovascular Disease
DX: Z01.812 Encounter for preprocedural laboratory examination (principal); E78.5 Hyperlipidemia, unspecified; I11.0 Hypertensive heart disease with heart failure; I25.10 Atherosclerotic heart disease of native coronary artery without angina pectoris; R94.31 Abnormal electrocardiogram [ECG] [EKG]
CPT/HCPCS: 36415; 80048; 80061; 85025; 85610; 85730; 93005; G0463

== ENCOUNTER 2019-04-15 09:02 | Day surgery (SDC) | payer MEDICARE ==
[~2019-04-15] VITALS: Ht 157.5 cm; Wt 63.5 kg
[~2019-04-15 09:02] MED LIST changes: -DOCU100T15 OR; -SOTA80TA PO; -[UNRECOGNIZED DRUG - CODE] PO
[2019-04-15 10:26] LABS: INR 1.11 (0.9-1.15); Partial Thromboplastin Time 30.1 sec (23.64-32.05)
[2019-04-15] MEDS ORDERED: SODIUM CHL 0.9% 0 ML ONE (12:11)
[2019-04-15] MEDS ORDERED: ANGIOMAX 250 MG VIAL IV ONE (12:11)
[2019-04-15] MEDS ORDERED: fentaNYL CITRATE 100 MCG/2 ML VL ONE (12:11)
[2019-04-15] MEDS ORDERED: MIDAZOLAM HCL 1MG/1ML-2 ML VIAL ONE (12:11)
[2019-04-15] MEDS ORDERED: IOHEXOL 350 MG/ML 100ML IJ ONE (12:21)
[2019-04-15] MEDS ORDERED: ACETAMINOPHEN 500 MG TAB PO PRN (13:15)
[2019-04-15] MEDS ORDERED: HYDROcodone-ACET 5/325MG TAB PO PRN (13:15)
[2019-04-15] MEDS ORDERED: ONDANSETRON HCL 4 MG/2 ML VIAL IV PRN (13:15)
== END 2019-04-15 15:10 | disposition home or self-care (01) ==
LOC: CATH 09:02
PROVIDERS: ATTEND Internal Medicine Cardiovascular Disease
DX: I25.810 Atherosclerosis of coronary artery bypass graft(s) without angina pectoris (principal); I73.9 Peripheral vascular disease, unspecified; I10 Essential (primary) hypertension; I49.5 Sick sinus syndrome; I48.0 Paroxysmal atrial fibrillation; M81.0 Age-related osteoporosis without current pathological fracture; J44.9 Chronic obstructive pulmonary disease, unspecified; E78.5 Hyperlipidemia, unspecified; F32.9 Major depressive disorder, single episode, unspecified; F41.9 Anxiety disorder, unspecified; F17.210 Nicotine dependence, cigarettes, uncomplicated; Z79.899 Other long term (current) drug therapy; Z79.01 Long term (current) use of anticoagulants; Z95.1 Presence of aortocoronary bypass graft; Z95.4 Presence of other heart-valve replacement; Z95.0 Presence of cardiac pacemaker; Z88.2 Allergy status to sulfonamides; Z88.8 Allergy status to other drugs, medicaments and biological substances; Z91.048 Other nonmedicinal substance allergy status
CPT/HCPCS: 36415; 85610; 85730; 93005; 93459; C1760; C1769; C1894; J2250; J3010; J7030; 99152; 99153

== ENCOUNTER → 2019-08-18 | Outpatient (CLI) | payer MEDICARE ==
[2019-08-18 12:18] LABS: Cholesterol 204 mg/dL (< 200); Creatine Kinase IFCC 87 U/L (26-192); HDL Cholesterol 40 mg/dL (40-59); LDL Cholesterol 121 mg/dL (< 100); Triglycerides 220 mg/dL (< 150)
== END | disposition home or self-care (01) ==
LOC: LAB 10:21
PROVIDERS: ATTEND Internal Medicine
DX: E78.5 Hyperlipidemia, unspecified (principal); R82.1 Myoglobinuria; Z79.899 Other long term (current) drug therapy
CPT/HCPCS: 36415; 80061; 82550; 83874; 84443

== ENCOUNTER → 2019-09-08 | Outpatient (CLI) | payer MEDICARE ==
[2019-09-08 16:00] LABS: Basophils # (auto) 0 uL; Basophils % (auto) 0.5 % (0.0-2.0); Eosinophils # (auto) 0.1 uL; Eosinophils % (auto) 1.8 % (0.0-7.0); Hematocrit 44.6 % (36.0-46.0); Hemoglobin 14.8 g/dL (12.2-16.2); Lymphocytes # (auto) 1.8 uL; Lymphocytes % (auto) 22.4 % (10.0-50.0); Mean Corpuscular Hemoglobin 31.6 pg (28.0-32.0); Mean Corpuscular Hgb Conc. 33.3 g/dL (32.0-36.0); Mean Corpuscular Volume 95.1 fL (80.0-100.0); Monocytes # (auto) 0.7 uL; Neutrophils # (auto) 5.2 uL; Neutrophils % (auto) 66.3 % (37.0-80.0); Nucleated Red Blood Cells % 0.1 %; Platelet Count (auto) 203 10^3/uL (140-450); Red Blood Cells 4.69 10^6/uL (4.0-5.20); Red Cell Distribution Width 14.5 % (11.8-14.3); White Blood Cell 7.8 10^3/uL (4.4-10.8)
== END | disposition home or self-care (01) ==
LOC: LAB 11:46
PROVIDERS: ATTEND Internal Medicine Cardiovascular Disease
DX: D64.9 Anemia, unspecified (principal); R79.1 Abnormal coagulation profile; Z79.899 Other long term (current) drug therapy
CPT/HCPCS: 36415; 83036; 85025; 85610

== ENCOUNTER → 2019-09-09 | Outpatient (CLI) | payer MEDICARE | END | disposition home or self-care (01) | LOC: Rad HDHVI 15:03 | PROVIDERS: ATTEND Internal Medicine Cardiovascular Disease | DX: I08.3 Combined rheumatic disorders of mitral, aortic and tricuspid valves (principal); I49.9 Cardiac arrhythmia, unspecified; I25.10 Atherosclerotic heart disease of native coronary artery without angina pectoris; R06.02 Shortness of breath | CPT/HCPCS: 93306 ==

== ENCOUNTER → 2019-09-14 | Outpatient (CLI) | payer MEDICARE | END | disposition home or self-care (01) | LOC: Rad HDHVI 08:05 | PROVIDERS: ATTEND Internal Medicine Cardiovascular Disease | DX: I65.23 Occlusion and stenosis of bilateral carotid arteries (principal); I49.5 Sick sinus syndrome; R07.89 Other chest pain; I10 Essential (primary) hypertension | CPT/HCPCS: 93880 ==

== ENCOUNTER → 2019-11-11 | Outpatient (CLI) | payer MEDICARE ==
[2019-11-11 16:17] LABS: Albumin 3.6 g/dL (3.4-5.0); Calcium 9.2 mg/dL (8.5-10.1); Potassium 4.5 mmol/L (3.5-5.1)
[2019-11-11 16:19] LABS: BUN/Creatinine Ratio 34.9
[2019-11-11 16:22] LABS: Bilirubin, Total 0.5 mg/dL (0.2-1.0); Total Protein 7.7 g/dL (6.4-8.2)
== END | disposition home or self-care (01) ==
LOC: LAB 11:23
PROVIDERS: ATTEND Internal Medicine
DX: I10 Essential (primary) hypertension (principal); I49.5 Sick sinus syndrome
CPT/HCPCS: 36415; 80053

== ENCOUNTER → 2019-12-23 | Outpatient (CLI) | payer MEDICARE ==
[2019-12-23 16:14] LABS: Cholesterol 221 mg/dL (< 200); HDL Cholesterol 41 mg/dL (40-59); LDL Cholesterol 136 mg/dL (< 100); Triglycerides 290 mg/dL (< 150)
== END | disposition home or self-care (01) ==
LOC: LAB 11:46
PROVIDERS: ATTEND Internal Medicine
DX: E78.5 Hyperlipidemia, unspecified (principal)
CPT/HCPCS: 36415; 80061

== ENCOUNTER → 2020-02-15 | Outpatient (CLI) | payer MEDICARE ==
[2020-02-15 16:23] LABS: Magnesium 2.4 mg/dL (1.6-2.6); Potassium 4.3 mmol/L (3.5-5.1)
== END | disposition home or self-care (01) ==
LOC: LAB 11:33
PROVIDERS: ATTEND Internal Medicine Cardiovascular Disease
DX: E87.6 Hypokalemia (principal); E83.40 Disorders of magnesium metabolism, unspecified; Z79.899 Other long term (current) drug therapy
CPT/HCPCS: 36415; 83735; 84132

== ENCOUNTER 2020-04-18 16:29 | Inpatient (IN) | payer MEDICARE ==
[~2020-04-18] VITALS: Ht 157.5 cm; Wt 65.9 kg
[2020-04-18 17:42] LABS: Basophils # (auto) 0 10 ^3/uL (0-0.2); Basophils % (auto) 0.4 % (0.0-2.0); Eosinophils # (auto) 0.1 10 ^3/uL (0-0.8); Eosinophils % (auto) 0.8 % (0.0-7.0); Hematocrit 38.1 % (36.0-46.0); Hemoglobin 13.5 g/dL (12.2-16.2); Lymphocytes # (auto) 1.4 10 ^3/uL (0.4-5.4); Lymphocytes % (auto) 14.9 % (10.0-50.0); Mean Corpuscular Hgb Conc. 35.3 g/dL (32.0-36.0); Mean Corpuscular Volume 90.5 fL (80.0-100.0); Monocytes # (auto) 0.7 10 ^3/uL (0-1.3); Neutrophils % (auto) 75.9 % (37.0-80.0); Nucleated Red Blood Cells % 0.1 %; Platelet Count (auto) 85 10^3/uL (140-450); Red Blood Cells 4.21 10^6/uL (4.0-5.20); Red Cell Distribution Width 13.2 % (11.8-14.3); White Blood Cell 9.3 10^3/uL (4.4-10.8)
[2020-04-18] MEDS ORDERED: METOPROLOL TARTRATE 50 MG TAB PO ONE (17:45)
[2020-04-18 17:47] LABS: Albumin 3.4 g/dL (3.4-5.0); Anion Gap 5 (5-15); Blood Urea Nitrogen 30 mg/dL (7-18); Calcium 11.1 mg/dL (8.5-10.1); Carbon Dioxide 30 mmol/L (21-32); Chloride 99 mmol/L (98-107); Glucose 99 mg/dL (74-106); Potassium 3.4 mmol/L (3.5-5.1); Sodium 134 mmol/L (136-145)
[2020-04-18 17:54] LABS: Alanine Aminotransferase 42 U/L (13-56); Alkaline Phosphatase 131 U/L (45-117); Aspartate Aminotransferase 146 U/L (15-37); BUN/Creatinine Ratio 28.3; Bilirubin, Total 0.5 mg/dL (0.2-1.0); GFR African American 65 mL/min; GFR Non-African American 53 mL/min; Total Protein 7.5 g/dL (6.4-8.2)
[2020-04-18] MEDS ORDERED: MORPHINE SULF INJ 2 MG/ML SYRINGE 1ML IV PRN (20:15)
[2020-04-18] MEDS ORDERED: NITROGLYCERIN 0.4 MG SL TAB SL PRN (20:15)
[2020-04-18] MEDS ORDERED: POTASSIUM EFFERVESENT TAB 25 MEQ PO ONE (20:30)
[2020-04-18 20:59] VITALS: BP 156/71
[2020-04-18] MEDS: SODIUM CHLORIDE 0.9% 1,000 ML IV SCH (20:59)
[2020-04-18] MEDS: ZINC SULFATE 220mg CAP or TAB PO SCH (20:59)
[2020-04-18] MEDS: ASCORBIC ACID 1,000 MG TAB PO SCH (21:00)
[2020-04-18] MEDS: CHOLECALCIFEROL (VITD3) 2,000 UNIT CAP PO SCH (21:05)
[2020-04-18] MEDS: ACETAMINOPHEN 500 MG TAB PO PRN (21:08)
[2020-04-18 21:18] LABS: INR 4.06 (0.9-1.15)
--- NOTE | 2020-04-18 21:40 | NUR ---
Respiratory note: RESP MED HELD AT THIS TIME WAITING FOR COVID RESULTS. NO RESP DISTRESS NOTED. PT PULSE OX 94% ON RA.
--- NOTE | 2020-04-18 21:45 | NUR ---
TEMPERATURE PT TEMPERATURE IS 100.3 MEDICATION NOT DUE APPLIED COOLING MEASURE
[2020-04-18] MEDS ORDERED: ALBUTEROL SULF HFA 90MCG INH 200DOSE IN SCH (22:00)
[2020-04-18] MEDS ORDERED: BUDESONIDE (INHALATION) 180 MCG IH IN SCH (22:00)
[2020-04-18 22:19] LABS: CRP High Sensitivity 8.24 mg/dL (< 0.3)
[2020-04-18 22:34] VITALS: BP 140/82
[2020-04-18] MEDS: VERAPAMIL HCL 120 mg ER tab PO SCH (22:59)
[2020-04-18] MEDS: DOXYCYCLINE 100 MG TAB/CAP PO SCH (22:59)
[2020-04-18] MEDS: ONDANSETRON HCL 4 MG/2 ML VIAL IV PRN (23:00)
[2020-04-18] MEDS ORDERED: ACET1CAP14 PO (23:27)
[2020-04-18] MEDS ORDERED: LOSA25TA38 PO (23:27)
[2020-04-19] MEDS ORDERED: PNEUMOCOCCAL VACC POLYS 25 MCG/0.5 ML VIAL IM ONE (00:30)
--- NOTE | 2020-04-19 01:06 | NUR ---
LATEST TEMPERATURE PT TEMPERATURE IS 97.8 WILL CONTINUE TO MONITOR
[2020-04-19 03:08] LABS: Urine Bacteria FEW /hpf (None Seen); Urine Blood Negative /uL (Negative); Urine Mucus FEW (None Seen); Urine Specific Gravity 1.008 (1.001-1.035); Urine WBC 2 /hpf (0 - 5)
[2020-04-19 05:00] VITALS: BP 130/83
[2020-04-19] MEDS: ACETAMINOPHEN 500 MG TAB PO PRN (05:25)
[2020-04-19] MEDS: VERAPAMIL HCL 120 mg ER tab PO SCH ×3 (05:26→22:46)
[2020-04-19] MEDS: LEVOTHYROXINE SODIUM 25 MCG TAB PO SCH (05:35)
--- NOTE | 2020-04-19 06:51 | NUR ---
CLOSING SHIFT NOTE WILL ENDORSE CARE TO DAY SHIFT RN, PT A0X4, NO S/S OF DISTRESS OR SOB
[2020-04-19 08:16] LABS: Hematocrit 38.8 % (36.0-46.0); Hemoglobin 13.6 g/dL (12.2-16.2); Mean Corpuscular Hemoglobin 31.7 pg (28.0-32.0); Mean Corpuscular Volume 90.5 fL (80.0-100.0); Platelet Count (auto) 84 10^3/uL (140-450); Red Blood Cells 4.29 10^6/uL (4.0-5.20); Red Cell Distribution Width 13.3 % (11.8-14.3); White Blood Cell 8.9 10^3/uL (4.4-10.8)
[2020-04-19 08:33] LABS: Albumin 3.4 g/dL (3.4-5.0); Magnesium 2.2 mg/dL (1.6-2.6); Potassium 3.7 mmol/L (3.5-5.1)
[2020-04-19 08:35] LABS: INR 2.57 (0.9-1.15); Partial Thromboplastin Time 42.7 sec (23.0-31.2)
[2020-04-19 08:37] LABS: BUN/Creatinine Ratio 28.9; Bilirubin, Total 0.7 mg/dL (0.2-1.0); Total Protein 7.4 g/dL (6.4-8.2)
[2020-04-19 08:53] LABS: Basophils % (manual) 0 (0.0-2.0); Blast Cells 0; Metamyelocytes % 0; Myelocytes % 0; Promyelocytes % 0; Reactive Lymphocytes 0
[2020-04-19 09:00] VITALS: BP 125/75
[2020-04-19] MEDS ORDERED: WARFARIN SODIUM 2 MG TAB PO SCH ×2 (10:00)
[2020-04-19] MEDS: ASCORBIC ACID 1,000 MG TAB PO SCH (10:00)
[2020-04-19] MEDS: CHOLECALCIFEROL (VITD3) 2,000 UNIT CAP PO SCH (10:00)
--- NOTE | 2020-04-19 10:15 | NUR ---
PATIENT REFUSE ALL MEDICATION UNTIL DR VIVAS SPEAKS IN PERSON. PATIENT STATED " DR VIVAS AND JAVON FINALLY GOT MY MEDS RIGHT NOW THEY WILL BE MESSED UP IM WAITING TO SEE DR VIVAS". THIS RN EXPLAINED ALL MEDICATIONS USE AND THIER SIDEEFFECTS AND THAT MEDICATIONS ARE SCHEDULED DIFFERENTLY IN THE HOSPITAL THAN AT HOME. EDUCATION PROVIDED AND RISKS INVOLVED WITH NONCOMPLIANCE OF DR ORDERS, PATIENT VERBALIZED UNDERSTANDING AND STILL REFUSED. WILL CONTINUE TO MONITOR.
[2020-04-19 10:16] LABS: Band Neutrophils % (manual) 7; Eosinophils % (manual) 1 (0-7); Lymphocytes % (manual) 19 (10.0-50.0); Monocytes % (manual) 4 (0-12)
[2020-04-19] MEDS: ZINC SULFATE 220mg CAP or TAB PO SCH (11:21)
[2020-04-19] MEDS: DOXYCYCLINE 100 MG TAB/CAP PO SCH ×2 (11:28→22:47)
[2020-04-19 13:00] VITALS: BP 136/76
[2020-04-19] MEDS ORDERED: IOHEXOL 350 MG/ML 100ML IJ ONE (14:10)
[2020-04-19] MEDS: METOPROLOL SUCCINATE XL 50 MG TAB PO SCH (16:34)
[2020-04-19 17:00] VITALS: BP 156/76
[2020-04-19] MEDS: ONDANSETRON HCL 4 MG/2 ML VIAL IV PRN (18:53)
--- NOTE | 2020-04-19 18:54 | NUR ---
ENDORSED CARE TO NIGHT RN, CONSENTS SIGNED OF BIOPSY NIGHT RN TO FINISH CHECKLIST.
[2020-04-19 20:00] VITALS: BP 136/76
[2020-04-19] MEDS: SODIUM CHLORIDE 0.9% 1,000 ML IV SCH (20:15)
[2020-04-19 22:00] VITALS: BP 157/69
--- NOTE | 2020-04-20 02:17 | NUR ---
PT GIVEN CHLORAHEXADRENE BATH;TOLERATED WELL.
[2020-04-20 05:00] VITALS: BP 149/74
[2020-04-20] MEDS: VERAPAMIL HCL 120 mg ER tab PO SCH ×3 (06:00→21:17)
[2020-04-20] MEDS: SODIUM CHLORIDE 0.9% 1,000 ML IV SCH ×4 (06:08→06:42)
[2020-04-20] MEDS: LEVOTHYROXINE SODIUM 25 MCG TAB PO SCH (06:09)
--- NOTE | 2020-04-20 06:09 | NUR ---
PT RESTED WELL THROUGH OUT THE NIGHT;NO C/O PAIN WILL CONTINUE TO MONITOR.
--- NOTE | 2020-04-20 07:45 | NUR ---
Opening Shift Note Assumed care of patient, awake and alert. No S/S of distress/SOB or pain. Instructed on POC and to call for assist PRN, will continue to monitor for changes Q1hr and PRN. Bed locked in lowest position with two side rails up and call light in reach.
[2020-04-20 08:00] VITALS: BP 146/71
--- NOTE | 2020-04-20 08:00 | NUR ---
Opening Shift Note Assumed care of patient, awake and alert. No S/S of distress/SOB or pain. Insructed on POC and to callfor assist PRN, will continue to monitor for changes Q1hr and PRN.
--- NOTE | 2020-04-20 08:22 | NUR ---
PT REQUEST PAIN MED Paged Dr. Castanon at [phone] for pain medication order for pt.
--- NOTE | 2020-04-20 08:32 | NUR ---
Order Received New order received from Dr. Castanon for Dilaudid 1mg iv q6 prn, for pt pain rating 10/10 via telephone order, verbal read back completed.
[2020-04-20 08:57] VITALS: BP 104/78
[2020-04-20] MEDS: HYDROmorphone HCL 2 MG/ML VL IV PRN (09:17)
--- NOTE | 2020-04-20 09:30 | NUR ---
At Bedside. Dr. He at bedside explaining to pt process of placement of catheter for dialysis, new orders to keep pt NPO for possible catheter placement for today. Addendum: 04/20/20 at 1213 by ARYAN DALE RN RN WRONG PT.
[2020-04-20] MEDS: DOXYCYCLINE 100 MG TAB/CAP PO SCH (10:31)
[2020-04-20] MEDS: METOPROLOL SUCCINATE XL 50 MG TAB PO SCH (10:31)
--- NOTE | 2020-04-20 10:40 | NUR ---
at bedside Dr. Marin at bedside explaining to pt post discharge follow up for at pulmonology clinic
[2020-04-20 12:59] VITALS: BP 116/83
--- NOTE | 2020-04-20 16:30 | NUR ---
Assumed care of patient. Patient awake, alert orientated. Patient instructed on POC. Fall precautions in place per safety protocol. Will cont to monitor patient.
[2020-04-20 16:43] VITALS: BP 145/80
--- NOTE | 2020-04-20 18:55 | NUR ---
Endorsed care to night RN Pako. RN Aware patient is to be NPO after midnight for Biopsy tomorrow.
--- NOTE | 2020-04-20 19:00 | NUR ---
Opening Shift Note Assumed care of patient, awake and alert. No S/S of distress/SOB or pain. Instructed on POC and to call for assist PRN, will continue to monitor for changes Q1hr and PRN.Advised no food or drink after midnight for biopsy of the right lung mass tomorrow.
[2020-04-20 21:48] VITALS: BP 139/70
[2020-04-21 05:00] VITALS: BP 147/79
[2020-04-21] MEDS: VERAPAMIL HCL 120 mg ER tab PO SCH ×3 (05:53→21:29)
[2020-04-21] MEDS: LEVOTHYROXINE SODIUM 25 MCG TAB PO SCH (05:53)
--- NOTE | 2020-04-21 06:14 | NUR ---
Called/paged [facility] [place] called re:med. for heart burn . Waiting for call back. Continue care.
--- NOTE | 2020-04-21 07:15 | NUR ---
Report given to ROSARIO Martinez, and to follow-up to the doctor heart burn med.
[2020-04-21 08:00] VITALS: BP 158/79
[2020-04-21] MEDS ORDERED: MIDAZOLAM HCL 1MG/1ML-2 ML VIAL IV ONE (08:00)
[2020-04-21] MEDS ORDERED: fentaNYL CITRATE 100 MCG/2 ML VL IV ONE (08:00)
[2020-04-21 08:01] LABS: INR 1.46 (0.9-1.15)
[2020-04-21 09:00] VITALS: BP 158/79
--- NOTE | 2020-04-21 09:05 | NUR ---
DR SANGEETHA KRAMER, PATIENT REQUESTING PEPCID. WILL AWAIT CALL BACK.
[2020-04-21] MEDS ORDERED: LIDOCAINE 2%HCL (LOCAL ANESTH.) INJ 20ML MDV ONE ×2 (09:36→17:04)
--- NOTE | 2020-04-21 09:45 | NUR ---
RECEIVED CALL FROM DR VIVAS PATIENT TO HAVE PEPCID 40 MG BID.
[2020-04-21] MEDS: METOPROLOL SUCCINATE XL 50 MG TAB PO SCH (10:00)
[2020-04-21] MEDS: HYDROmorphone HCL 2 MG/ML VL IV PRN ×2 (11:00→18:03)
[2020-04-21] MEDS: FAMOTIDINE 20 MG TAB PO SCH ×2 (11:03→21:28)
[2020-04-21 13:00] VITALS: BP 113/86
[2020-04-21] MEDS ORDERED: IOHEXOL 300 MG/ML 100ML BOTTLE IJ ONE (16:25)
[2020-04-21 17:00] VITALS: BP 149/82
--- NOTE | 2020-04-21 20:00 | NUR ---
Patient has small bore chest tube placed catheter was connected to Heimlich valve.
--- NOTE | 2020-04-21 20:00 | NUR ---
Opening Shift Note Assumed care of patient, awake and alert. No S/S of distress/SOB or pain. Instructed on POC and to call for assist PRN, will continue to monitor for changes Q1hr and PRN.
[2020-04-21 21:57] VITALS: BP 145/70
[2020-04-21] MEDS: SODIUM CHLORIDE 0.9% 1,000 ML IV SCH (22:32)
[2020-04-22 04:58] VITALS: BP 154/70
[2020-04-22] MEDS: LEVOTHYROXINE SODIUM 25 MCG TAB PO SCH (05:59)
[2020-04-22] MEDS: VERAPAMIL HCL 120 mg ER tab PO SCH ×3 (05:59→21:31)
--- NOTE | 2020-04-22 07:34 | NUR ---
Report given to Meghana Tom, patient is resting no distress, Heimlich valve chest tube in placed in the right side.
[2020-04-22 09:00] VITALS: BP 154/54
[2020-04-22] MEDS: FAMOTIDINE 20 MG TAB PO SCH ×2 (11:09→21:30)
[2020-04-22] MEDS: METOPROLOL SUCCINATE XL 50 MG TAB PO SCH (11:10)
[2020-04-22] MEDS: HYDROmorphone HCL 2 MG/ML VL IV PRN ×2 (11:11→20:45)
[2020-04-22 12:41] VITALS: BP 123/56
--- NOTE | 2020-04-22 14:06 | NUR ---
Nutrition Assessment Notes please see attached link for complete assessment Est energy needs BW 68 [id number] kcal (23-25 kcal/kg BW) Est protein needs 68-75 g (1.0-1.1g/kg BW) Will reassess prn. Addendum: 04/22/20 at [address] Amended: Links added.
[2020-04-22 16:57] VITALS: BP 140/67
--- NOTE | 2020-04-22 20:00 | NUR ---
Opening Shift Note Assumed care of patient, awake and alert. No S/S of distress/SOB or pain. Instructed on POC and to call for assist PRN, will continue to monitor for changes Q1hr and PRN.Right Heimlich valve small chest tube in placed.
[2020-04-22] MEDS: SODIUM CHLORIDE 0.9% 1,000 ML IV SCH (20:15)
--- NOTE | 2020-04-22 21:00 | NUR ---
SON LEANNE CALLED ASKING WHEN HER MOTHER WILL BE GOING HOME AND WHEN IS THE RESULT OF THE BIOPSY WILL BE AVAILABLE, TOLD THE SON THAT THE RESULT MAYBE AVAILABLE COUPLE OF DAYS AND THERE IS NO ORDER FOR DISCHARGE YET, SAID HE WILL CALL HIS MOTHER TOMORROW BREAKFAST TIME.
[2020-04-22 22:00] VITALS: BP 153/68
[2020-04-23] MEDS: VERAPAMIL HCL 120 mg ER tab PO SCH ×3 (05:29→22:32)
[2020-04-23] MEDS: ACETAMINOPHEN 500 MG TAB PO PRN (05:44)
--- NOTE | 2020-04-23 05:44 | NUR ---
Requested only Tylenol for pain ,verbalized she does not like strong pain medicine that make her sleep, given Tylenol 1000mg.tab.for all over pain 6/10pain level.
--- NOTE | 2020-04-23 05:55 | NUR ---
Refused to insert a new i.v.line said that he wants to talk to Dr. Castanon first before inserting a new one, even though explained the necessity of it.
[2020-04-23] MEDS: LEVOTHYROXINE SODIUM 25 MCG TAB PO SCH (06:27)
--- NOTE | 2020-04-23 07:23 | NUR ---
Report given to Meghana Huitron, patient is resting no distress.
--- NOTE | 2020-04-23 07:30 | NUR ---
Opening Shift Note Assumed care of patient, awake and alert. No S/S of distress/SOB or pain. Instructed on POC and to call for assist PRN, will continue to monitor for changes Q1hr and PRN. Bed is locked and in lowest position. Call light within reach.
[2020-04-23 08:00] VITALS: BP 135/65
--- NOTE | 2020-04-23 08:00 | NUR ---
PATIENT RIGHT CHEST TUBE ASSESSED, IT IS DRAINING A SMALL AMOUNT OF YELLOW COLOR FLUID. PATIENT RIGHT LUNG SOUNDS DIMINISHED COMPARED TO LEFT LUNG. PATIENT DENIES PAIN OR SOB. WILL PAGE DR. VIVAS TO UPDATE ON FINDINGS.
[2020-04-23 09:00] VITALS: BP 135/65
[2020-04-23] MEDS: FAMOTIDINE 20 MG TAB PO SCH ×2 (09:27→22:32)
[2020-04-23] MEDS: METOPROLOL SUCCINATE XL 50 MG TAB PO SCH (09:28)
--- NOTE | 2020-04-23 09:36 | NUR ---
ORDERED RECEIVED FOR CHEST X-RAY PER DR. VIVAS. UPDATED DR. VIVAS ON DIMINISHED LUNG SOUND ON RIGHT LUNG UPON AUSCULTATION AND DRAINING YELLOW FLUID FROM CATHETER TO HEIMLICH VALVE ON RIGHT LUNG. WILL AWAIT CHEST XRAY RESULTS AND WILL CONTINUE TO MONITOR PATIENT.
--- NOTE | 2020-04-23 10:35 | NUR ---
DR. VIVAS AT BEDSIDE TO DISCUSS POC. DR. VIVAS STATED PLAN IS TO REMOVE CHEST CATHETER TOMORROW. DR. VIVAS EXPLAINED TO PATIENT THE DRAINAGE FROM CHEST TUBE IS LUNG FLUID WHICH IS NORMAL NO NEED TO BE CONCERNED. WILL CONTINUE TO MONITOR PATIENT.
[2020-04-23 13:00] VITALS: BP 116/83
[2020-04-23] MEDS: HYDROmorphone HCL 2 MG/ML VL IV PRN (14:55)
[2020-04-23 16:44] VITALS: BP 115/66
[2020-04-23] MEDS: SODIUM CHLORIDE 0.9% 1,000 ML IV SCH (20:15)
[2020-04-23 22:00] VITALS: BP 134/75
[2020-04-24] MEDS: HYDROmorphone HCL 2 MG/ML VL IV PRN (03:15)
[2020-04-24 05:00] VITALS: BP 131/66
[2020-04-24] MEDS: VERAPAMIL HCL 120 mg ER tab PO SCH ×2 (06:24→15:35)
[2020-04-24] MEDS: LEVOTHYROXINE SODIUM 25 MCG TAB PO SCH (06:25)
[2020-04-24 08:00] VITALS: BP 127/69
[2020-04-24 09:00] VITALS: BP 127/69
[2020-04-24] MEDS: FAMOTIDINE 20 MG TAB PO SCH (09:46)
[2020-04-24] MEDS: METOPROLOL SUCCINATE XL 50 MG TAB PO SCH (09:47)
[2020-04-24 13:00] VITALS: BP 165/76
[2020-04-24 17:36] VITALS: BP 165/76
--- NOTE | 2020-04-24 17:55 | NUR ---
DR. VIVAS AT BEDSIDE TO REMOVE CHEST TUBE. PATIENT TOLERATED CHEST TUBE WITH NO SIGNS OF DISTRESS. ON INCISION SITE 4X4 DRESSING APPLIED AND TEGADERM. PATIENT WILL BE DISCHARGED.
--- NOTE | 2020-04-24 18:40 | NUR ---
DISCHARGED PATIENT GIVEN DISCHARGE PAPERWORK, ALL QUESTIONS AND CONCERNS ANSWERED. PATIENT TELEMONITOR REMOVED AND SENT TO ICU HEART LAB. PATIENT WILL BE WHEELED DOWN WHEN SON LEANNE ARRIVES TO SOLE STAINER PATIENT. IV removal IV DC'd with clean sterile technique, catheter fully intact. Pressure dressing applied to site. Patient tolerated well.
== END 2020-04-24 18:20 | disposition home or self-care (01) | DRG 181 ==
LOC: ER 16:29 → EDBD 16:29 → TELE 16:30 → TELE-EAST 23:22 → TELE-WESTW 04-19 03:00
PROVIDERS: ADMIT Family Medicine; ATTEND Internal Medicine Cardiovascular Disease
PROC: 0BBD3ZX Excision of Right Middle Lung Lobe, Percutaneous Approach, Diagnostic (ICD-10-PCS; principal; 2020-04-21)
PROC: 0W9930Z Drainage of Right Pleural Cavity with Drainage Device, Percutaneous Approach (ICD-10-PCS; 2020-04-24)
DX: C78.01 Secondary malignant neoplasm of right lung (principal); C78.7 Secondary malignant neoplasm of liver and intrahepatic bile duct; E87.1 Hypo-osmolality and hyponatremia; D68.59 Other primary thrombophilia; I13.0 Hypertensive heart and chronic kidney disease with heart failure and stage 1 through stage 4 chronic kidney disease, or unspecified chronic kidney disease; J93.9 Pneumothorax, unspecified; E87.6 Hypokalemia; K52.9 Noninfective gastroenteritis and colitis, unspecified; N18.9 Chronic kidney disease, unspecified; K21.9 Gastro-esophageal reflux disease without esophagitis; E03.9 Hypothyroidism, unspecified; D69.6 Thrombocytopenia, unspecified; I48.0 Paroxysmal atrial fibrillation; F17.210 Nicotine dependence, cigarettes, uncomplicated; I25.10 Atherosclerotic heart disease of native coronary artery without angina pectoris; I49.5 Sick sinus syndrome; J44.9 Chronic obstructive pulmonary disease, unspecified; Z20.828 Contact with and (suspected) exposure to other viral communicable diseases; I50.9 Heart failure, unspecified; E86.0 Dehydration; F41.9 Anxiety disorder, unspecified; Z95.1 Presence of aortocoronary bypass graft; Z79.01 Long term (current) use of anticoagulants; Z95.2 Presence of prosthetic heart valve; Z95.0 Presence of cardiac pacemaker; Z82.49 Family history of ischemic heart disease and other diseases of the circulatory system; Z71.6 Tobacco abuse counseling
CPT/HCPCS: 10022; 36415; 70470; 71045; 71250; 71260; 74177; 77012; 80053; 81001; 82728; 83615; 83735; 83880; 84436; 84443; 84484; 85007; 85025; 85027; 85379; 85610; 85730; 86141; 87426; 93005; 93970; C1729; G0378; J2250; J2405